=== PATIENT | female | born 1945 | race Caucasian/White ===

== ENCOUNTER 2016-12-01 09:13 | Inpatient (IN) | payer OTHER ==
[2016-12-01] MEDS ORDERED: NORMAL SALINE 10 ML SYRINGE FLUSH IVP PRN (09:23)
[2016-12-01] MEDS ORDERED: Sodium Chloride 0.9% 1,000 ML PRIMARY IV ONE (09:23)
[2016-12-01 09:29] LABS: BASOPHILS # (AUTO) 0.02 10*3/UL; BASOPHILS % (AUTO) 0.3 % (0-1); EOSINOPHILS % (AUTO) 3.8 % (0-8); HEMATOCRIT 42.8 % (37.0-47.0); HEMOGLOBIN 14.5 g/dL (12.0-16.0); LYMPHOCYTES # (AUTO) 2.76 10*3/uL; MEAN CORPUSCULAR HGB CONC 33.9 g/dL (33-37); MEAN CORPUSCULAR VOLUME 88.6 FL (81-99); MEAN PLATELET VOLUME 9.9 FL (7.4-12.2); MONOCYTES # (AUTO) 0.72 10*3/UL (0.3-0.8); MONOCYTES % (AUTO) 9.1 % (5-15); NEUTROPHILS # (AUTO) 4.05 10*3/UL; NEUTROPHILS % (AUTO) 51.1 % (50-80); PLATELET MORPHOLOGY COMMENT NORMAL MORPHOLOGY (NORM); RBC MORPHOLOGY COMMENT NORMAL MORPHOLOGY (NORM); RED BLOOD COUNT 4.83 10^6/uL (4.20-5.40); WBC MORPHOLOGY COMMENT NORMAL MORPHOLOGY (NORM)
--- NOTE | 2016-12-01 09:31 | EKG ---
[address] [address] Measurements Intervals [place] Rate: 63 P: 51 [place]: 178 QRS: -37 QRSD: 106 T: 9 QT: 447 QTc: 455 Interpretive Statements SINUS RHYTHM POSSIBLE LEFT ATRIAL ENLARGEMENT [-0.1mV P WAVE IN V1/V2] MARKED LEFT AXIS DEVIATION [QRS AXIS < -30] INCOMPLETE RIGHT BUNDLE BRANCH BLOCK [90+ ms QRS DURATION, TERMINAL R IN V1/V2, 40+ ms S IN I/aVL/V4/V5/V6] INTERPRETATION BASED ON A DEFAULT AGE OF 40 YEARS No previous ECG available for comparison Electronically Signed On 12-04-16 07:50:40 MDT by Bulmaro Levin MD [email or web address]
[2016-12-01 09:33] LABS: BLOOD UREA NITROGEN 24 mg/dL (7-22); BUN/CREATININE RATIO 34.28 (6-20); CALCIUM 9.6 mg/dL (8.7-10.7); EST GLOMERULAR FILTRATION > 60 (>60 ml/min/1.73m(2))
[2016-12-01 09:34] LABS: SERUM ALBUMIN 4.6 g/dL (3.5-4.8)
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
[2016-12-01 10:20] LABS: BILIRUBIN,URINE NEGATIVE (NEG); CLARITY,URINE CLEAR (CLEAR); COLOR,URINE YELLOW; GLUCOSE, URINE (UA) NEGATIVE (NEG); NITRATE,URINE NEGATIVE (NEG); OCCULT BLOOD,URINE NEGATIVE (NEG); PH,URINE 7.5 (5.0-8.5); PROTEIN,URINE NEGATIVE (NEG); UROBILINOGEN,URINE 0.2 EU/dL (0.2)
[2016-12-01 10:31] LABS: URINE SAMPLE TYPE CATH SPECIMEN
[2016-12-01] MEDS ORDERED: MORPHINE SULFATE 2 MG/1 ML IVP ONE (10:37)
[2016-12-01] MEDS ORDERED: MORPHINE SULFATE 2 MG/1 ML ONE (10:37)
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
--- NOTE | 2016-12-01 12:05 | DI ---
XR CLAVICLE,12/01/2016 10:58 AM: Clinical History: Left clavicular fracture. Previous Exam: None at this facility. Findings: 2 views of the left clavicle are obtained, and demonstrate a slightly comminuted fractures through th e left mid clavicle. Alignment is near anatomic, but there is mild overlapping of fragments. Impression: Left mid clavicular fracture with mild comminution and mild displacement.
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
[2016-12-01] MEDS ORDERED: MORPHINE SULFATE 2 MG/1 ML IVP PRN (13:26)
[2016-12-01] MEDS ORDERED: ONDANSETRON 4 MG/2 ML VIAL IVP PRN (13:26)
[2016-12-01] MEDS ORDERED: LIDOCAINE W/ SODIUM BICARB 0.5 ML SYR SUBD PRN (13:26)
[2016-12-01] MEDS: NORMAL SALINE 10 ML SYRINGE FLUSH IVP PRN ×3 (14:23→20:03)
[2016-12-01] MEDS: KETOROLAC 15 MG/1 ML VIAL IVP SCH ×2 (14:24→20:03)
[2016-12-01] MEDS: oxyCODONE-ACETAMINOPHEN 5-325 TAB PO PRN ×2 (15:00→19:06)
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
[2016-12-01] MEDS: DOCUSATE 100 MG CAPSULE PO SCH (20:27)
[2016-12-01] MEDS: FAMOTIDINE 20 MG TABLET PO SCH (20:28)
[2016-12-02] MEDS: oxyCODONE-ACETAMINOPHEN 5-325 TAB PO PRN ×4 (01:07→11:55)
[2016-12-02] MEDS: KETOROLAC 15 MG/1 ML VIAL IVP SCH ×2 (01:07→07:34)
[2016-12-02] MEDS: NORMAL SALINE 10 ML SYRINGE FLUSH IVP PRN ×2 (01:07→07:35)
[2016-12-02 05:03] LABS: BASOPHILS # (AUTO) 0.01 10*3/UL; BASOPHILS % (AUTO) 0.1 % (0-1); EOSINOPHILS # (AUTO) 0.21 10*3/UL; EOSINOPHILS % (AUTO) 2.7 % (0-8); HEMOGLOBIN 12.4 g/dL (12.0-16.0); LYMPHOCYTES # (AUTO) 1.33 10*3/uL; MEAN CORPUSCULAR HEMOGLOBIN 30.2 PG (27-31); MEAN CORPUSCULAR HGB CONC 33.5 g/dL (33-37); MEAN CORPUSCULAR VOLUME 90.2 FL (81-99); MEAN PLATELET VOLUME 9.7 FL (7.4-12.2); MONOCYTES # (AUTO) 1.03 10*3/UL (0.3-0.8); MONOCYTES % (AUTO) 13.3 % (5-15); NEUTROPHILS # (AUTO) 5.12 10*3/UL; NEUTROPHILS % (AUTO) 66.4 % (50-80)
[2016-12-02 05:17] LABS: PLATELET MORPHOLOGY COMMENT NORMAL MORPHOLOGY (NORM); RBC MORPHOLOGY COMMENT NORMAL MORPHOLOGY (NORM); WBC MORPHOLOGY COMMENT NORMAL MORPHOLOGY (NORM)
[2016-12-02 05:27] LABS: BLOOD UREA NITROGEN 26 mg/dL (7-22); BUN/CREATININE RATIO 37.14 (6-20); CALCIUM 8.5 mg/dL (8.7-10.7); EST GLOMERULAR FILTRATION > 60 (>60 ml/min/1.73m(2)); SERUM ALBUMIN 3.5 g/dL (3.5-4.8)
[2016-12-02 07:53] VITALS: RESP 18; TEMP 97.8
--- NOTE | 2016-12-02 08:41 | DI ---
HISTORY: Rib fractures. COMPARISON: 12/01/2016. FINDINGS: The comparison examination contains multiple artifacts and is largely nondiagnostic. There is soft tissue thickening overlying the left lung apex. This is obscured by the humeri on the lateral projection. The overlying ribs are slightly irregular. There is prominence of the central vasculature. The cardiac silhouette is not significantly enlarged . No large effusions. IMPRESSION: 1. The comparison examination contains multiple artifacts and is largely nondiagnostic. 2. There is soft tissue thickening overlying the left lung apex. Recommend CT. This is obscured by t he humeri on the lateral projection. The overlying ribs are slightly irregular. 3. There is prominence of the central vasculature.
[2016-12-02] MEDS: DOCUSATE 100 MG CAPSULE PO SCH (08:50)
[2016-12-02] MEDS: FAMOTIDINE 20 MG TABLET PO SCH (08:51)
--- NOTE | 2016-12-02 10:35 | ORTHO.PROG ---
Last Taken Vital Signs: Vital Signs - Last Taken Temperature 97.8 F 12/02/16 07:51 Pulse Rate 69 12/02/16 07:51 Respiratory Rate 18 12/02/16 07:51 Blood Pressure 130/69 12/02/16 07:51 Pulse Ox 95 12/02/16 07:51 Subjective: Patient states that she has little pain if she does not move or take a deep breath. She has been utilizing a fair amount of oral medication and IV Toradol in order to help keep her pain tolerable. Objective: Patient with bruising of the clavicle region. No soft tissue compromise. Patient in a [id number] brace but this is on loosely at the current time is normal motor and sensory of the elbow wrist and digits. Generalized pain discomfort around the collarbone and upper chest wall area. Otherwise no significant pain or discomfort in the right upper extremity the lower back region pelvis or lower extremities. Patient notes that she has some upper scapular pain. Motor and sensory exam is generally nonfocal Laboratory Results 12/02/16 Range/Units 04:55 WBC 7.72 (4.8-10.8) 10^3/uL RBC 4.10 L (4.20-5.40) 10^6/uL Hgb 12.4 (12.0-16.0) g/dL Hct 37.0 (37.0-47.0) % MCV 90.2 (81-99) FL MCH 30.2 (27-31) PG MCHC 33.5 (33-37) g/dL RDW Std Deviation 42.3 (39-50) fL RDW Coeff of Tony 13.2 (11.5-14.5) % Plt Count 194 (140-350) 10*3/uL MPV 9.7 (7.4-12.2) FL Immature Gran % (Auto) 0.3 (0-5) % Neut % (Auto) 66.4 (50-80) % Lymph % (Auto) 17.2 (10-50) % [place] % (Auto) 13.3 (5-15) % Eos % (Auto) 2.7 (0-8) % Baso % (Auto) 0.1 (0-1) % Immature Gran # (Auto) 0.02 10*3/UL Neut # (Auto) 5.12 10*3/UL Lymph # (Auto) 1.33 10*3/uL [place] # (Auto) 1.03 H (0.3-0.8) 10*3/UL Eos # (Auto) 0.21 10*3/UL Baso # (Auto) 0.01 10*3/UL WBC Morphology Comment Normal morphology (NORM) Plt Morphology Comment Normal morphology (NORM) RBC Morph Comment Normal morphology (NORM) Sodium 135 (135-145) meq/L Potassium 4.1 (3.8-5.2) meq/L Chloride 103 (98-112) meq/L Carbon Dioxide 25 (23-33) meq/L Anion Gap 7 (5-20) BUN 26 H (7-22) mg/dL Creatinine 0.7 (0.50-1.20) mg/dL Estimated GFR > 60 (>60 ml/min/1.73m(2)) BUN/Creatinine Ratio 37.14 H (6-20) Glucose 92 (78-110) mg/dL Calculated Osmolality 284.0 (267-292) mOsm/kg Calcium 8.5 L (8.7-10.7) mg/dL Total Bilirubin 1.1 (0.3-1.2) mg/dL AST 37 (8-39) IU/L ALT 37 (9-52) IU/L Alkaline Phosphatase 59 (38-126) IU/L Total Protein 6.0 L (6.1-8.0) g/dL Albumin 3.5 (3.5-4.8) g/dL Globulin 2.5 (2.50-4.10) g/dL Albumin/Globulin Ratio 1.40 (1.3-2.0) mg/g Patient does have a third rib fracture as well as one of her multiple rib fractures and this is fractured in a more posterior region relative to the other fractures. Assessment: Multiple rib fractures on the left including the manubrium and apparently also a right-sided rib fracture Left clavicle fracture Plan: Patient can continue with the [id number] brace until positioning TAB shoulders with a cemented cup on the left compared to the right should not induce significant pain when it is in place. I would also use a sling for supporting the arm when up and moving about and if it makes the shoulder clavicle feel better while in bed. Patient will continue with pain control. When discharged will likely be returning to home at some point in [place]. If patient stays an area would like to see her as an outpatient in approximately one week. I will sign off at the current time if there are any further questions please let me know.
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
--- NOTE | 2016-12-04 09:42 | PT PM DAY ---
PM - Inpatient Observation O: The patient was issued a Figure 8 brace and instructed in its propre use and care. P: No further therapy is indicated at this time. MTDD
== END 2016-12-02 12:57 | disposition home or self-care (01) | DRG 999 ==
LOC: ER 09:13 → MED/SURG 12:53
PROVIDERS: ADMIT Surgery; ATTEND Surgery
DX: S22.43XA Multiple fractures of ribs, bilateral, initial encounter for closed fracture (principal); S27.0XXA Traumatic pneumothorax, initial encounter; S22.21XA Fracture of manubrium, initial encounter for closed fracture; V95.01XA Helicopter crash injuring occupant, initial encounter; S42.002A Fracture of unspecified part of left clavicle, initial encounter for closed fracture
CPT/HCPCS: 36415; 70450; 71010; 71020; 71260; 72125; 73000; 74177; 80053; 81003; 85025; 85610; 93005; 93010; 94150; 96374; 99285; J1885; J2270; J2405